=== PATIENT | female | born 1950 | race Two or more races ===

== ENCOUNTER → 2017-11-12 | Outpatient (CLI) | payer OTHER | END | disposition home or self-care (01) | LOC: HKI 10:28 | DX: M17.0 Bilateral primary osteoarthritis of knee (principal) | CPT/HCPCS: 72170; 73564-50 ==

== ENCOUNTER → 2017-11-23 | Outpatient (CLI) | payer OTHER | END | disposition home or self-care (01) | LOC: HKI 10:39 | DX: M17.0 Bilateral primary osteoarthritis of knee (principal) | CPT/HCPCS: 20610 ==

== ENCOUNTER → 2018-08-06 | Outpatient (CLI) | payer MEDICARE, OTHER | END | disposition home or self-care (01) | LOC: HKI 14:17 | DX: M17.0 Bilateral primary osteoarthritis of knee (principal) | CPT/HCPCS: 20610; 20610-50 ==

== ENCOUNTER 2018-09-27 06:51 | Day surgery (SDC) | payer MEDICARE, OTHER ==
[2018-09-27] MEDS: SOD CHLORIDE 0.9% 1,000 ML IV (06:00)
[~2018-09-27 06:51] MED LIST: CEFAZOLIN 2 GM/50 ML (PMX) 50 ML IVPB
[2018-09-27] MEDS ORDERED: ONDANSETRON 4 MG INJ (08:52)
[2018-09-27] MEDS ORDERED: ROCURONIUM 50 MG INJ (08:52)
[2018-09-27] MEDS ORDERED: METOCLOPRAMIDE 10 MG INJ (08:52)
[2018-09-27] MEDS ORDERED: ROPIVACAINE 0.5 % 30 ML VIAL (08:52)
[2018-09-27] MEDS ORDERED: PROPOFOL 20 ML (08:52)
[2018-09-27] MEDS ORDERED: MIDAZOLAM 1 MG/ML 2 ML INJ (08:53)
[2018-09-27] MEDS ORDERED: LABETALOL HCL 20MG INJ IV (09:00)
[2018-09-27] MEDS ORDERED: HYDROmorphONE 1 MG/5 ML IV SYRINGE IV ×2 (09:00)
[2018-09-27] MEDS ORDERED: FENTAnyl 50 MCG/ML VIAL IV ×3 (09:00)
[2018-09-27] MEDS ORDERED: OXYCODONE/ACETAMINOPHEN (5/325) TAB PO ×2 (09:00)
[2018-09-27] MEDS ORDERED: hydrALAzine 20 MG INJ IV (09:00)
[2018-09-27] MEDS ORDERED: DIPHENHYDRAMINE 50 MG INJ IV (09:00)
[2018-09-27] MEDS ORDERED: CEFAZOLIN 1 GM INJ (09:11)
[2018-09-27] MEDS ORDERED: GLYCOPYRROLATE 0.4 MG INJ (09:44)
[2018-09-27] MEDS ORDERED: NEOSTIGMINE 3 MG/3 ML SYRINGE (09:44)
[2018-09-27] MEDS: MEPERIDINE 25 MG INJ IV (10:02)
[2018-09-27] MEDS: ONDANSETRON 4 MG INJ IV (10:03)
[2018-09-27] MEDS: HYDROmorphONE 1 MG/5 ML IV SYRINGE IV (10:23)
[2018-09-27] MEDS: HYDROCODONE/APAP (5/325) TAB PO (10:48)
== END 2018-09-27 11:47 | disposition home or self-care (01) ==
LOC: SDS 06:51
DX: K80.80 Other cholelithiasis without obstruction (principal); I10 Essential (primary) hypertension; E03.9 Hypothyroidism, unspecified
CPT/HCPCS: 47562